=== PATIENT | female | born 1995 | race Caucasian/White ===

== ENCOUNTER 2018-03-20 07:42 | Emergency (ER) | payer OTHER ==
[~2018-03-20] VITALS: Ht 172.7 cm; Wt 86.2 kg
[2018-03-20] MEDS ORDERED: ALDACTONE25 MG (07:49)
== END 2018-03-20 10:36 | disposition home or self-care (01) ==
LOC: ER 07:42
DX: J31.2 Chronic pharyngitis (principal); R60.0 Localized edema